=== PATIENT | female | born 1935 | race Two or more races ===

== ENCOUNTER 2020-03-27 13:02 | Emergency (ER) | payer OTHER ==
[~2020-03-27] VITALS: Ht 162.6 cm; Wt 36.3 kg
[2020-03-27] MEDS ORDERED: ATORVASTATIN CA80 MG (13:37)
[2020-03-27] MEDS ORDERED: SYNTHROID50 MCG (13:38)
[2020-03-27] MEDS ORDERED: BACLOFEN10 MG (13:38)
[2020-03-27] MEDS ORDERED: ADALAT CC30 MG (13:38)
[2020-03-27] MEDS ORDERED: TENORMIN25 MG (13:39)
[2020-03-27] MEDS ORDERED: CAMBIA50 MG (13:39)
[2020-03-27] MEDS ORDERED: AVAPRO300 MG (13:40)
[2020-03-27] MEDS ORDERED: TRAM1TAB98 (13:41)
[2020-03-27] MEDS ORDERED: APETIGEN-PLUS1 EACH PO (15:27)
[2020-03-27] MEDS ORDERED: [UNRECOGNIZED DRUG - OTHER] PO (15:27)
== END 2020-03-27 15:45 | disposition home or self-care (01) ==
LOC: ER 13:02
DX: R41.0 Disorientation, unspecified (principal); F02.80 Dementia in other diseases classified elsewhere, unspecified severity, without behavioral disturbance, psychotic disturbance, mood disturbance, and anxiety

== ENCOUNTER 2021-11-23 12:48 | Emergency (ER) | payer OTHER ==
[~2021-11-23] VITALS: Ht 160 cm; Wt 39.9 kg
[~2021-11-23 12:48] MED LIST: ADALAT CC30 MG; APETIGEN-PLUS1 EACH PO; ATORVASTATIN CA80 MG; AVAPRO300 MG; BACLOFEN10 MG; CAMBIA50 MG; SYNTHROID50 MCG; TENORMIN25 MG; TRAM1TAB98; [UNRECOGNIZED DRUG - OTHER] PO
== END 2021-11-23 14:15 | disposition home or self-care (01) ==
LOC: ER 12:48
DX: M54.89 Other dorsalgia (principal); M81.0 Age-related osteoporosis without current pathological fracture; I10 Essential (primary) hypertension; I49.9 Cardiac arrhythmia, unspecified